=== PATIENT | female | born 1985 | race Caucasian/White ===

== ENCOUNTER 2020-12-03 09:25 | Emergency (ER) | payer MEDICAID, SELFPAY ==
[2020-12-03 09:28] VITALS: BP 120/88; PULSE 92; RESP 18; TEMP 37; O2SAT 98; BMI 18.6
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
[2020-12-03] MEDS: Magnesium Hydrox/Alum Hydrox 30 ML ORAL.SUSP PO (10:50)
[2020-12-03] MEDS: 0.9 % Sodium Chloride 1,000 ML 999 ML IV (10:50)
[2020-12-03] MEDS: Lidocaine HCl Viscous 2 % 15 ML SOLUTION 10 ML MUCOUS MEM (10:50)
[2020-12-03 10:52] LABS: MANUAL DIFF FLAG NO
[2020-12-03 10:55] LABS: Basophils Absolute Auto 0.1 X10*3/uL (0.0-0.2); Basophils Percent Auto 0.6 % (0-2); Eosinophils Absolute Auto 0.1 X10*3/uL (0.0-0.4); Eosinophils Percent Auto 0.9 % (0-4); Hematocrit 47.6 % (37-47); Hemoglobin 16.4 g/dl (12.0-16.0); Imm Gran Abs Auto 0.03 X10*3/uL (0.00-0.03); Imm Gran Pct Auto 0.3 % (0.0-0.4); Lymphocytes Absolute Auto 3.8 X10*3/uL (1.2-4.9); Mean Corpuscular HGB Conc 34.5 g/dl (31.0-35.0); Mean Corpuscular Hemoglobin 30.4 pg (27.0-33.0); Mean Corpuscular Volume 88.3 fL (80-98); Mean Platelet Volume 12.8 fL (9.4-12.3); Monocytes Absolute Auto 0.9 X10*3/uL (0.1-1.2); Monocytes Percent Auto 8.1 % (2-11); Neutrophils Absolute Auto 5.7 X10*3/uL (2.0-8.3); Neutrophils Percent Auto 54.1 % (45-73); Platelet Count 149 X10*3/uL (160-400); Red Blood Count 5.39 X10*6/uL (4.20-5.50); Red Cell Distribution Width 12.3 % (11.0-16.0); White Blood Count 10.6 X10*3/uL (4.8-10.8)
[2020-12-03 10:56] LABS: Glucose Urine UA NEG (NEG); Leukocyte Esterase Urine TRACE (NEG); Nitrite Urine NEG (NEG); PCO2 VBG 34 mmHg; Specific Gravity - Urine 1.015 (1.005-1.025); UACC Culture Trigger YES; Urine Blood TRACE (NEG); Urine Ketones 5 MG/DL (NEG); Urine Protein 1+ MG/DL (NEG-TRACE); pH VBG 7.48 (7.32-7.43)
[2020-12-03 10:57] LABS: Appearance Urine CLOUDY; Base Excess VBG 3.3 mmol/L; Color Urine YELLOW; HCO3 VBG 26 mmol/L; PO2 VBG 45 mmHg
[2020-12-03 10:59] LABS: INTERNATIONAL NORM RATIO 1.1 (0.9-1.1); Prothrombin Time 13.6 SEC (10.8-13.0); UPreg QC Valid YES; Urine Pregnancy NEGATIVE (NEGATIVE)
[2020-12-03 11:02] LABS: Partial Thromboplastin Time 29.7 SEC (24.1-38.0)
[2020-12-03 11:07] LABS: Bacteria Urine TRACE /LPF; Mucus Urine 2+ /LPF; RBC Urine 0-2 /HPF (0); Squamous Epithelial Cell Urine 1+ /LPF; UACC CULT YES
[2020-12-03 11:08] LABS: Amorphous Sediment Urine 1+ /LPF; Calcium Oxalate Crystals Urine 1+ /LPF
[2020-12-03 11:32] VITALS: BP 122/78; PULSE 71; RESP 16; O2SAT 98
[2020-12-03 13:12] LABS: Alanine Aminotransferase 11 U/L (0-31); Alkaline Phosphatase 66 U/L (39-117); Anion Gap 12 (12-20); Aspartate Amino Transferase 12 U/L (5-31); Bilirubin Total 0.8 mg/dL (0.0-1.0); Blood Urea Nitrogen 10 mg/dL (9-16); Calcium 8.9 mg/dL (8.4-10.2); Carbon Dioxide 27 mmol/L (22-29); Chloride 104 mmol/L (96-108); Creatinine Clr Calc Pharmacy 81.9; Estimated Glomerular Filt Rate > 60; Glucose Random 90 mg/dL (60-115); Potassium 4.2 mmol/L (3.3-5.1); Sodium 139 mmol/L (135-145); Total Protein 5.9 g/dL (6.5-8.0)
[2020-12-03 13:50] VITALS: BP 104/73; PULSE 65; RESP 15; O2SAT 97
[2020-12-03 14:51] LABS: Influenza A PCR NEGATIVE (Negative); Influenza B PCR NEGATIVE (Negative); Resp Syncy Virus RNA Qual PCR NEGATIVE (Negative); SARS COV2 PCR INHOUSE NEGATIVE (Negative)
== END 2020-12-03 14:07 | disposition home or self-care (01) ==
PROVIDERS: Nurse Practitioner Primary Care; Emergency Provider Emergency Medicine
DX: K52.9 Noninfective gastroenteritis and colitis, unspecified (principal); R10.13 Epigastric pain; Z20.822 Contact with and (suspected) exposure to COVID-19
CPT/HCPCS: 0241U; 36415; 80053; 81001; 81025; 82375; 82803; 85025; 85610; 85730; 87086; 96360; 99284

== ENCOUNTER 2020-12-03 21:09 | Emergency (ER) | payer MEDICAID, SELFPAY | END 2020-12-04 00:42 | disposition left against medical advice (07) | PROVIDERS: Emergency Provider Emergency Medicine | DX: R10.9 Unspecified abdominal pain (principal) ==

== ENCOUNTER 2021-04-12 09:52 | Outpatient (REF) | payer OTHER, SELFPAY ==
[2021-04-12 17:30] LABS: CT PCR NOT DETECTED (Not Detect.); NG PCR NOT DETECTED (Not Detect.)
[2021-04-13 09:05] LABS: BV Int Neg Control Negative (Negative); BV Int Pos Control Positive (Positive)
[2021-04-15 01:26] LABS: HPV mRNA E6/E7 rflx Not Detected (Not Detected)
== END 2021-04-12 09:53 | disposition home or self-care (01) ==
LOC: HO.LAB 09:52
PROVIDERS: Visit Provider Advanced Practice Midwife
DX: Z01.419 Encounter for gynecological examination (general) (routine) without abnormal findings (principal); Z11.3 Encounter for screening for infections with a predominantly sexual mode of transmission; Z11.51 Encounter for screening for human papillomavirus (HPV); Z20.2 Contact with and (suspected) exposure to infections with a predominantly sexual mode of transmission
CPT/HCPCS: 87480; 87491; 87510; 87591; 87624; 87660; 88142

== ENCOUNTER 2021-06-13 10:40 | Emergency (ER) | payer OTHER, SELFPAY ==
--- NOTE | ~2021-06-13 | XR_ITS ---
EXAMINATION: XR CHEST CLINICAL INFORMATION: Cough and fever COMPARISON: None TECHNIQUE: Frontal view of the chest was obtained. FINDINGS: No significant abnormality is noted involving the heart, lungs, mediastinum, bony thorax or soft tissues. XR/XR chest 1V IMPRESSION: Unremarkable examination.
[2021-06-13 11:35] VITALS: RESP 20; TEMP 36.6; BMI 24.4
--- NOTE | 2021-06-13 11:36 | PC.NURSE ---
unable to get vitals pt rocking back and forth in wheelchair
--- NOTE | 2021-06-13 12:02 | ED_ITS ---
HPI - Nausea/Vomiting/Diarrhea General Chief complaint: Nausea/Vomiting/Diarrhea Stated complaint: abd pain, N/V/D, from urgent care Time Seen by Provider: 06/13/21 11:53 Source: patient Mode of arrival: ambulatory Limitations: no limitations History of Present Illness HPI Narrative: 35-year-old female presents emergency department with recurrent vomiting. Patient had a similar presentation back November. Patient is bipolar states she did not take her medications this morning she went to a walk-in clinic and sent here for further evaluation. Patient is liquid on the bed moaning intermittently but sleeping when I went meet the patient. Patient refused the bladder back for examination. Patient states that she smokes marijuana daily she states she has never been told that there is such thing as cyclical vomiting or marijuana hyperemesis. Patient states she has got nausea vomiting epigastric pain and some diarrhea. Patient denies fevers chills cough. She admits she did not take her medications this morning. MD elicited complaint: nausea, vomiting, diarrhea and abdominal pain Pertinent past history: anorexia Related Data Home Medications Medication Instructions Recorded Confirmed albuterol sulfate 90 mcg/actuation 2 puff INHALATION Q4-6H PRN 02/22/21 04/12/21 aerosol inhaler (ProAir HFA) Previous Rx's Medication Instructions Recorded triamcinolone acetonide 0.1 % 1 appl TOPICAL DAILY 10 Days #30 g 02/22/21 topical cream ondansetron HCl 4 mg tablet 4 mg PO Q8H PRN #10 tab 06/13/21 (Zofran) Allergies Allergy/AdvReac Type Severity Reaction Status Date / Time No Known Allergies Allergy Verified 04/12/21 10:21 [No Known Allergies*] Review of Systems Review of Systems: Review of systems: General: Patient denies any fever chills recent illness or falls Musculoskeletal: Denies back pain or body aches or other injuries HEENT: denies headache, runny nose, ear pain Respiratory: denies shortness of breath, cough Cardiovascular: no chest pain or palpitations : denies dysuria, frequency Abdomen: nausea vomiting epigastricabdominal pain Extremities: no swelling, no pain Skin: no diaphoresis Yes all other systems are reviewed and are negative PMFSH Past Medical History Medical History ASCUS with positive high risk HPV cervical Bipolar 1 disorder Cervical cancer screening Rash Surgical History H/O nasal septoplasty Hx of KYA Family History Family History Other No significant family history Social History Social History Alcohol intake: never Substance Use Type: Marijuana Advance Directives: No Advance Directives Information Provided: No Gender identity: Female Physical Exam Vital Signs: Vital Signs: Last Vital Signs Temp 97.9 F 06/13/21 11:35 Resp 20 06/13/21 11:35 Body Mass Index 24.4 General: Well-appearing well-nourished in no signs of distress HEENT: Normocephalic atraumatic Neck: No signs of JVD, no masses no tenderness or lymphadenopathy Cardiovascular: Regular rate and rhythm Respiratory: Clear to auscultation bilaterally Abdomen: Soft nontender no masses . Extremities: Normal pedal pulses no signs of edema Skin: Dry warm no rashes Back: No tenderness full ROM MDM - Nausea/Vomiting/Diarrhea MDM Narrative Medical decision making narrative: Concern for marijuana hyperemesis versus cyclical vomiting with this being the 2nd episode in this year patient has benig n belly exam upon arrival I will give her fluids droperidol Ativan and Benadryl and then I will reassess the patient. 1314 Patient is feeling much better no vomiting here. Pending BMP, LFT, lipase 1337 Labs look okay patient has not given us a urine sample LMP was 2 weeks ago and she is adamant she is not . I will send home with mela. I explained the need to avoid marijuana in the future. Differential Diagnosis Differential diagnosis: Likely dehydration Medical Records Attestation: I reviewed the patient's medical records. Lab Data Result diagrams: 06/13/21 12:56 06/13/21 12:56 Labs: Lab Results 06/13/21 06/13/21 Range/Units 12:56 12:56 WBC 7.4 (4.8-10.8) X10*3/uL RBC 5.39 (4.20-5.50) X10*6/uL Hgb 15.7 (12.0-16.0) g/dl Hct 46.4 (37-47) % MCV 86.1 (80-98) fL MCH 29.1 (27.0-33.0) pg MCHC 33.8 (31.0-35.0) g/dl RDW 13.2 (11.0-16.0) % Plt Count 144 L (160-400) X10*3/uL MPV 11.8 (9.4-12.3) fL Immature Gran % (Auto) 0.7 H (0.0-0.4) % Neut % (Auto) 74.0 H (45-73) % Lymph % (Auto) 16.8 L (20-40) % [place] % (Auto) 5.4 (2-11) % Eos % (Auto) 2.8 (0-4) % Baso % (Auto) 0.3 (0-2) % Lymph # (Auto) 1.2 (1.2-4.9) X10*3/uL [place] # (Auto) 0.4 (0.1-1.2) X10*3/uL Eos # (Auto) 0.2 (0.0-0.4) X10*3/uL Baso # (Auto) 0.0 (0.0-0.2) X10*3/uL Abs Immat Gran (auto) 0.05 H (0.00-0.03) X10*3/uL Absolute Neuts (auto) 5.5 (2.0-8.3) X10*3/uL Absolute Nucleated RBC 0.000 (0.0-0.012) X10*3/uL Nucleated RBC % (auto) 0.0 (0.0-0.2) /100WBC Sodium 139 (135-145) mmol/L Potassium 4.3 (3.3-5.1) mmol/L Chloride 106 (96-108) mmol/L Carbon Dioxide 17 L (22-29) mmol/L Anion Gap 20 (12-20) BUN 12 (9-16) mg/dL Creatinine 0.81 (0.5-1.4) mg/dL Estim Creat Clear Calc 80.2 Estimated GFR > 60 Random Glucose 106 (60-115) mg/dL Calcium 10.2 D (8.4-10.2) mg/dL Total Bilirubin 0.8 (0.0-1.0) mg/dL Direct Bilirubin 0.3 (0.0-0.5) mg/dL AST 24 D (5-31) U/L ALT 17 (0-31) U/L Alkaline Phosphatase 94 D (39-117) U/L Total Protein 8.3 H D (6.5-8.0) g/dL Albumin 5.3 H D (3.5-5.0) g/dL Lipase 10 (8-78) U/L Discharge Plan Discharge Clinical Impression: Dehydration, Vomiting, Cannabinoid hyperemesis syndrome Patient Disposition: Home, Self-Care Instructions: Acute Nausea and Vomiting (ED), Cannabis Abuse (ED) Additional Instructions: Please call to follow up with your doctor. Please avoid marijuana to avoid this recurrent vomiting. If you have any other concerns please return to the ED. Prescriptions: New ondansetron HCl [Zofran] 4 mg tablet 4 mg PO Q8H PRN (Reason: nausea and vomiting) Qty: 10 RF: 0 No Action albuterol sulfate [ProAir HFA] 90 mcg/actuation HFA aerosol inhaler 2 puff inhalation Q4-6H PRNRF: 0 triamcinolone acetonide 0.1 % cream 1 appl topical DAILY 10 Days Qty: 30 RF: 0
[2021-06-13] MEDS: LORazepam 2 MG/ML VIAL 1 MG IVPUSH (12:27)
[2021-06-13] MEDS: 0.9 % Sodium Chloride 500 ML 999 ML IV (12:27)
[2021-06-13] MEDS: diphenhydrAMINE HCL 50 MG/ML VIAL 25 MG IVPUSH (12:27)
[2021-06-13 13:00] LABS: MANUAL DIFF FLAG NO
[2021-06-13 13:04] LABS: Basophils Percent Auto 0.3 % (0-2); Eosinophils Absolute Auto 0.2 X10*3/uL (0.0-0.4); Eosinophils Percent Auto 2.8 % (0-4); Hematocrit 46.4 % (37-47); Hemoglobin 15.7 g/dl (12.0-16.0); Imm Gran Abs Auto 0.05 X10*3/uL (0.00-0.03); Imm Gran Pct Auto 0.7 % (0.0-0.4); Lymphocytes Absolute Auto 1.2 X10*3/uL (1.2-4.9); Lymphocytes Percent Auto 16.8 % (20-40); Mean Corpuscular HGB Conc 33.8 g/dl (31.0-35.0); Mean Corpuscular Hemoglobin 29.1 pg (27.0-33.0); Mean Corpuscular Volume 86.1 fL (80-98); Mean Platelet Volume 11.8 fL (9.4-12.3); Monocytes Absolute Auto 0.4 X10*3/uL (0.1-1.2); Monocytes Percent Auto 5.4 % (2-11); Neutrophils Absolute Auto 5.5 X10*3/uL (2.0-8.3); Platelet Count 144 X10*3/uL (160-400); Red Blood Count 5.39 X10*6/uL (4.20-5.50); Red Cell Distribution Width 13.2 % (11.0-16.0); White Blood Count 7.4 X10*3/uL (4.8-10.8)
[2021-06-13 13:32] LABS: Alanine Aminotransferase 17 U/L (0-31); Albumin Level 5.3 g/dL (3.5-5.0); Alkaline Phosphatase 94 U/L (39-117); Anion Gap 20 (12-20); Aspartate Amino Transferase 24 U/L (5-31); Bilirubin Direct 0.3 mg/dL (0.0-0.5); Bilirubin Total 0.8 mg/dL (0.0-1.0); Blood Urea Nitrogen 12 mg/dL (9-16); Calcium 10.2 mg/dL (8.4-10.2); Carbon Dioxide 17 mmol/L (22-29); Chloride 106 mmol/L (96-108); Creatinine Clr Calc Pharmacy 80.2; Estimated Glomerular Filt Rate > 60; Glucose Random 106 mg/dL (60-115); Lipase 10 U/L (8-78); Potassium 4.3 mmol/L (3.3-5.1); Sodium 139 mmol/L (135-145); Total Protein 8.3 g/dL (6.5-8.0)
[2021-06-13 13:50] VITALS: BP 169/89; PULSE 82; RESP 16; TEMP 38.8; O2SAT 100
[2021-06-13 14:33] LABS: COVID-19 Test Negative (Negative)
[2021-06-13] MEDS: Acetaminophen 325 MG TABLET 650 MG PO (14:42)
[2021-06-13 16:00] VITALS: PULSE 95; RESP 16; TEMP 38.2; O2SAT 99
--- NOTE | 2021-06-13 16:11 | PC.NURSE ---
PT TOLERATING PO INTAKE W/OUT DIFFICULTY.
== END 2021-06-13 17:03 | disposition home or self-care (01) ==
PROVIDERS: Emergency Provider Student in an Organized Health Care Education/Training Program; PCP Internal Medicine
DX: E86.0 Dehydration (principal); R11.2 Nausea with vomiting, unspecified; F12.90 Cannabis use, unspecified, uncomplicated; Z20.822 Contact with and (suspected) exposure to COVID-19; Z79.899 Other long term (current) drug therapy
CPT/HCPCS: 36415; 71045; 80048; 80076; 83690; 85025; 87635; 96374; 96375; 99284; J1200; J1790; J2060

== ENCOUNTER 2021-08-01 11:20 | Outpatient (REF) | payer OTHER, SELFPAY | END 2021-08-01 11:21 | disposition home or self-care (01) | LOC: HO.LNP 11:20 | PROVIDERS: Visit Provider Physician Assistant | DX: Z20.822 Contact with and (suspected) exposure to COVID-19 (principal); R05.9 Cough, unspecified | CPT/HCPCS: U0003; U0005 ==

== ENCOUNTER 2022-03-15 09:21 | Outpatient (REF) | payer OTHER, SELFPAY ==
[2022-03-15 11:11] LABS: MANUAL DIFF FLAG NO
[2022-03-15 11:41] LABS: Basophils Absolute Auto 0.1 X10*3/uL (0.0-0.2); Basophils Percent Auto 0.9 % (0-2); Eosinophils Absolute Auto 0.3 X10*3/uL (0.0-0.4); Eosinophils Percent Auto 4.6 % (0-4); Hematocrit 40.9 % (37.0-47.0); Hemoglobin 13.5 g/dl (12.0-16.0); Imm Gran Abs Auto 0.02 X10*3/uL (0.00-0.03); Imm Gran Pct Auto 0.3 % (0.0-0.4); Lymphocytes Percent Auto 43.8 % (20-40); Mean Corpuscular Hemoglobin 29.6 pg (27.0-33.0); Mean Corpuscular Volume 89.7 fL (80.0-98.0); Monocytes Absolute Auto 0.4 X10*3/uL (0.1-1.2); Monocytes Percent Auto 5.9 % (2-11); Neutrophils Percent Auto 44.5 % (45-73); Platelet Count 136 X10*3/uL (160-400); Red Blood Count 4.56 X10*6/uL (4.20-5.50); Red Cell Distribution Width 11.8 % (11.0-16.0); White Blood Count 6.8 X10*3/uL (4.8-10.8)
[2022-03-15 12:21] LABS: Alanine Aminotransferase 11 U/L (0-31); Anion Gap 13 (12-20); Aspartate Amino Transferase 16 U/L (5-31); Blood Urea Nitrogen 10 mg/dL (9-16); Calcium 9.5 mg/dL (8.4-10.2); Carbon Dioxide 22 mmol/L (22-29); Chloride 108 mmol/L (96-108); Cholesterol 186 mg/dL; Estimated Glomerular Filt Rate > 60; Glucose Fasting 85 mg/dL (60-99); HDL Cholesterol 64 mg/dL; LDL Cholesterol Calculated 116 mg/dl; Potassium 4.2 mmol/L (3.3-5.1); Sodium 139 mmol/L (135-145); Triglycerides 32 mg/dL
== END 2022-03-15 09:22 | disposition home or self-care (01) ==
LOC: HO.HMGCLDS 09:21
PROVIDERS: Visit Provider Internal Medicine
DX: Z00.01 Encounter for general adult medical examination with abnormal findings (principal); F31.9 Bipolar disorder, unspecified; D69.6 Thrombocytopenia, unspecified
CPT/HCPCS: 36415; 80048; 80061; 84450; 84460; 85025

== ENCOUNTER 2022-07-26 09:44 | Outpatient (REF) | payer OTHER, SELFPAY ==
[2022-07-26 18:40] LABS: CT PCR NOT DETECTED (Not Detect.); NG PCR NOT DETECTED (Not Detect.)
[2022-07-27 10:09] LABS: BV Int Neg Control Negative (Negative); BV Int Pos Control Positive (Positive)
[2022-08-01 11:42] LABS: HPV mRNA E6/E7 rflx Not Detected (Not Detected)
== END 2022-07-26 09:45 | disposition home or self-care (01) ==
LOC: HO.LNP 09:44
PROVIDERS: Visit Provider Advanced Practice Midwife
DX: Z01.419 Encounter for gynecological examination (general) (routine) without abnormal findings (principal); Z11.51 Encounter for screening for human papillomavirus (HPV)
CPT/HCPCS: 87480; 87491; 87510; 87591; 87624; 87660; 88142

== ENCOUNTER 2022-09-26 09:15 | Outpatient (REF) | payer OTHER, SELFPAY ==
[2022-09-26 13:58] LABS: Influenza A PCR NEGATIVE (Negative); Influenza B PCR NEGATIVE (Negative); Resp Syncy Virus RNA Qual PCR NEGATIVE (Negative); SARS COV2 PCR INHOUSE NEGATIVE (Negative)
== END 2022-09-26 09:16 | disposition home or self-care (01) ==
LOC: HO.LAB 09:15
PROVIDERS: Visit Provider Nurse Practitioner Family
DX: Z20.822 Contact with and (suspected) exposure to COVID-19 (principal); J06.9 Acute upper respiratory infection, unspecified
CPT/HCPCS: 0241U

== ENCOUNTER 2023-01-01 12:20 | Outpatient (REF) | payer OTHER, SELFPAY | END 2023-01-01 12:21 | disposition home or self-care (01) | LOC: HO.LAB 12:20 | PROVIDERS: Visit Provider Physician Assistant | DX: Z13.89 Encounter for screening for other disorder (principal) ==

== ENCOUNTER 2023-04-24 08:29 | Outpatient (REF) | payer OTHER, SELFPAY ==
[2023-04-24 11:20] LABS: MANUAL DIFF FLAG NO
[2023-04-24 11:31] LABS: Basophils Absolute Auto 0.1 X10*3/uL (0.0-0.2); Basophils Percent Auto 0.9 % (0-2); Eosinophils Absolute Auto 0.2 X10*3/uL (0.0-0.4); Eosinophils Percent Auto 2.7 % (0-4); Hemoglobin 13.1 g/dl (12.0-16.0); Imm Gran Abs Auto 0.02 X10*3/uL (0.00-0.03); Imm Gran Pct Auto 0.3 % (0.0-0.4); Lymphocytes Absolute Auto 2.8 X10*3/uL (1.2-4.9); Lymphocytes Percent Auto 35.6 % (20-40); Mean Corpuscular HGB Conc 32.8 g/dl (31.0-35.0); Mean Corpuscular Hemoglobin 28.8 pg (27.0-33.0); Mean Corpuscular Volume 87.9 fL (80.0-98.0); Mean Platelet Volume 12.6 fL (9.4-12.3); Monocytes Absolute Auto 0.5 X10*3/uL (0.1-1.2); Monocytes Percent Auto 5.8 % (2-11); Neutrophils Absolute Auto 4.3 x10*3/uL (2.0-8.3); Neutrophils Percent Auto 54.7 % (45-73); Platelet Count 137 X10*3/uL (160-400); Red Blood Count 4.55 X10*6/uL (4.20-5.50); Red Cell Distribution Width 13.2 % (11.0-16.0); White Blood Count 7.8 X10*3/uL (4.8-10.8)
[2023-04-24 12:07] LABS: Alanine Aminotransferase 16 U/L (0-31); Anion Gap 17 (12-20); Aspartate Amino Transferase 28 U/L (5-31); Blood Urea Nitrogen 8 mg/dL (9-16); Calcium 9.8 mg/dL (8.4-10.2); Carbon Dioxide 19 mmol/L (22-29); Chloride 106 mmol/L (96-108); Cholesterol 189 mg/dL; Estimated Glomerular Filt Rate > 60; Glucose Fasting 89 mg/dL (60-99); HDL Cholesterol 69 mg/dL; LDL Cholesterol Calculated 108 mg/dl; Potassium 3.8 mmol/L (3.3-5.1); Sodium 138 mmol/L (135-145); Triglycerides 61 mg/dL
== END 2023-04-24 08:30 | disposition home or self-care (01) ==
LOC: HO.HMGCLDS 08:29
PROVIDERS: PCP Internal Medicine; Visit Provider Internal Medicine
DX: Z00.01 Encounter for general adult medical examination with abnormal findings (principal); D69.6 Thrombocytopenia, unspecified; F31.9 Bipolar disorder, unspecified
CPT/HCPCS: 36415; 80048; 80061; 82306; 84450; 84460; 85025

== ENCOUNTER 2023-05-22 08:51 | Outpatient (RCR) | payer OTHER, SELFPAY ==
--- NOTE | 2023-05-22 09:56 | MHC.PT.EP ---
[facility] [place] Office [place] Office [place] Office [address] Rajeev Reed [address] [phone] F: [phone] F: [phone] F: [phone] F: [phone] Physical Therapy Plan of Care Date of Evaluation: Date of Surgery: n/a Diagnosis: cervicalgia, torticollis Assessment: Patient is a 37 year old female presenting to PT with complaints of pain in her neck. Pt reports onset of pain began 2016 initially with worsening in February 2023 due to insidious onset. She presents today with impairments in pain, ROM, posture, shoulder strength, periscap strength. 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 Pt expresses longterm goal of reducing pain, and is motivated to work towards this in PT. Clinical presentation today is most consistent with signs and sx associated with neck pain and pt will benefit from skilled PT 2 week x 4 weeks to address the following problems and impairments noted upon evaluation: pain, ROM, posture, shoulder strength, periscap strength. These problems limit the patient with the following functional activities: work, ADLs, reaching, lifting, sleeping, driving. The prescribed treatment plan of care is medically necessary. Co-morbidities of none were identified and taken into considerations of plan of care. Pt was educated on HEP, role of PT, prognosis, POC. Frequency and Duration: The patient will be seen 2 x week x 4 weeks Short Term Goals: Pt will demonstrate improved pain at rest to <4/10 in 2 weeks. Pt will report centralization of her sx in 2 weeks. Pt will demonstrate improved R shoulder MMT strength by 1/3 grade in 2 weeks. Pt will demonstrate improved postural awareness by sitting with biomechanically correct posture without cues throughout session to improve overall postural function in 2 weeks. Mcc Goals: Pt will demonstrate improved NDI score by 10% in 4 weeks for improved functional mobility. Pt will demonstrate ability to work a full day with min to no pain in 4 weeks for return to PLOF. Pt will demonstrate ability to reach and lift with min to no pain in 4 weeks for improved tolerance to ADLs. Treatment Plan: Modalities to reduce pain, spasms and effusion. Manual therapy to restore motion and function. Therapeutic exercise to improve strength and flexibility. Neuromuscular re-education for posture and balance. Therapeutic activities to return to functional activities of daily living. Electronically signed by: Angelika Raza, PT, DPT, ATC Please sign and return to therapist. Thank you for your referral.
--- NOTE | 2023-05-29 08:41 | MHC.PT.DC ---
[facility] [place] Office [place] Office [place] Office [address] Rajeev Reed [address] [phone] F: [phone] F: [phone] F: [phone] F: [phone] Physical Therapy Discharge Report Diagnosis: cervicalgia, torticollis Date of Surgery: n/a Date of Evaluation: 05/22/23 Date of Discharge: 05/29/23 Treatments to Date: 1 Cancellations to Date: 0 No Shows to Date: 2 Discharge Status: Visit Non-compliance Discharge Summary: Pt has failed to comply with [facility] attendance policy and no showed her first 2 follow ups since her eval. Pt to be d/c at this time per attendance policy. Electronically signed by: Angelika Raza, PT, DPT, ATC Please sign and return to therapist. Thank you for your referral.
== END 2023-05-29 08:41 | disposition home or self-care (01) ==
LOC: HO.PTCHIC 08:51
PROVIDERS: PCP Internal Medicine; Visit Provider Internal Medicine
DX: M54.2 Cervicalgia (principal); M54.9 Dorsalgia, unspecified; M43.6 Torticollis
CPT/HCPCS: 97110; 97161